=== PATIENT | female | born 1980 ===

== ENCOUNTER 2017-03-06 10:51 | Emergency (ER) | payer MEDICAID ==
[2017-03-06 10:52] VITALS: BMI 35.4
[2017-03-06 10:59] VITALS: RESP 16; O2SAT 100
--- NOTE | 2017-03-06 12:13 | C.PDOC ---
History Of Present Illness 36 yo female w/o significant PMHx come in for evaluation of facial congestion, mild swelling, frontal headache gradually developed for past 2 days. Pt admits, (+) cold sx week prior to onset of current sx. Otherwise, pt denies high fever, chills, worse headache, visual changes, focal deficits, neck pain, drooling, dysphagia, dyspnea, CP, SOB, wheezing, abd. pain, V/D, back pain, UTI sx. Ambulate to ED for evaluation, not in any apparent distress. Time Seen by Provider: 03/06/17 11:24 Chief Complaint (Nursing): Headache History Per: Patient Past Medical History Reviewed: Historical Data, Nursing Documentation, Vital Signs Vital Signs: Last Vital Signs Temp 97.8 F 03/06/17 10:55 Pulse 74 03/06/17 10:55 Resp 16 03/06/17 10:55 BP 150/86 03/06/17 10:55 Pulse Ox 100 03/06/17 12:19 - Medical History PMH: Asthma, Migraine Denies: Chronic Kidney Disease Surgical History: - [facility] Procedures MONITORING NOS (06/30/13) LOW CERVICAL (06/30/13) Family History: States: Unknown Family Hx - Social History Hx Tobacco Use: No Hx Alcohol Use: No Hx Substance Use: No - Immunization History Hx Tetanus Toxoid Vaccination: Yes Hx Influenza Vaccination: Yes Hx Pneumococcal Vaccination: Yes Review Of Systems Except As Marked, All Systems Reviewed And Found Negative. Constitutional: Negative for: Fever, Chills Eyes: Negative for: Vision Change ENT: Positive for: Nose Discharge, Nose Congestion. Negative for: Ear Discharge , Mouth Pain, Mouth Swelling, Throat Pain Respiratory: Negative for: Cough, Shortness of Breath, Wheezing Gastrointestinal: Negative for: Nausea, Vomiting, Abdominal Pain, Diarrhea Genitourinary: Negative for: Dysuria, Incontinence Musculoskeletal: Negative for: Neck Pain, Back Pain Skin: Negative for: Rash Neurological: Positive for: Headache. Negative for: Weakness, Numbness, Altered Mental Status, Dizziness Physical Exam - Physical Exam Appears: Well, Non-toxic, No Acute Distress Skin: Normal Color, Warm, Dry, No Rash Head: Normacephalic Eye(s): bilateral: PERRL Ear(s): Bilateral: Normal Nose: No Flaring, No Discharge, Other ((+)mild B/L maxilalry sinus edema and tenderness, no erythema.) Oral Mucosa: Moist, No Drooling Tongue: Normal Appearing, No Swelling Lips: Normal Appearing, No Swelling Throat: No Erythema, No Exudate, No Drooling Neck: Trachea Midline, Supple Cardiovascular: Rhythm Regular, No Murmur, No JVD Respiratory: No Decreased Breath Sounds, No Accessory Muscle Use, No Stridor, No Wheezing Gastrointestinal/Abdominal: Soft, No Tenderness Back: No CVA Tenderness Extremity: Normal ROM, No Pedal Edema, No Deformity, No Swelling Neurological/Psych: Oriented x3, Normal Speech ED Course And Treatment - Laboratory Results Urine POC: Negative O2 Sat by Pulse Oximetry: 100 Pulse Ox Interpretation: Normal Progress Note: On re-eval, pt is afebrile, hemodynamicaly stable. Non-toxic. Tolerate Po well in ED. PUlsEOx 100% RA. Neck: Supple, (-) JVD, (-) carotid bruits B/L. ENT: exam c/w maxilary sinusitis. uvula midline, no edema. Lungs: CTA B/L, BS equal B/L. CVS: (+)S1S2, reg. Abd: benign. Neurologicaly intact. Pt advised on course of ds. ref. to F/u with PMD, ENT In 2-3 days for re- eval. return if any new changes. Disposition Counseled Patient/Family Regarding: Studies Performed, Diagnosis, Need For Followup, Rx Given - Disposition Referrals: [facility] [Outside] Disposition: HOME/ ROUTINE Disposition Time: 12:15 Condition: STABLE Additional Instructions: ENCOURAGE FLUIDS TAKE MEDICATION PRESCRIBED FOLLOW UP WITH PMD IN 2-3 DAYS FOR RE-EVALUATION. RETURN TO ed IF ANY WORSENING OR NEW CHANGES. Prescriptions: Ciprofloxacin [Cipro] 1 tab PO BID #14 tab Loratadine [Claritin] 10 mg PO BID #10 tab Prednisone [Deltasone] 40 mg PO DAILY #6 tablet Instructions: Sinusitis (ED), Urinary Tract Infection in Women (ED) Forms: [employer] (Wolof) Print Language: IVORIAN - Clinical Impression Clinical Impression: Sinusitis, UTI (urinary tract infection)
[2017-03-06 12:22] LABS: SQUAMOUS EPITHIAL 7 /hpf (0-5); URINE AMORPHOUS SEDIMENT RARE /ul (<OCC); URINE BACTERIA MANY (<OCC); URINE BILIRUBIN NEGATIVE (NEGATIVE); URINE BLOOD NEGATIVE (NEGATIVE); URINE CLARITY Hazy (Clear); URINE COLOR Amber (YELLOW); URINE GLUCOSE (UA) NORMAL (Normal); URINE LEUKOCYTE ESTERASE TRACE Leu/uL (Negative); URINE NITRATE NEGATIVE (NEGATIVE); URINE PROTEIN NEGATIVE (NEGATIVE); URINE UROBILINOGEN NORMAL mg/dL (0.2-1.0)
[2017-03-06 12:44] VITALS: BP 124/72; PULSE 68; TEMP 98.2
== END 2017-03-06 12:57 | disposition home or self-care (01) ==
LOC: C.ER 10:51
DX: J32.9 Chronic sinusitis, unspecified (principal); N39.0 Urinary tract infection, site not specified

== ENCOUNTER 2018-03-14 11:25 | Emergency (ER) | payer MEDICAID ==
[2018-03-14 11:25] VITALS: BMI 35.4
[2018-03-14 11:32] VITALS: RESP 20; TEMP 98.1; O2SAT 100
[2018-03-14] MEDS ORDERED: Simethicone 80 mg Chewtab PO STA (12:20)
--- NOTE | 2018-03-14 13:00 | C.PDOC ---
History Of Present Illness 37 y/o female presents to the ER complaining of dizziness which occurred today. 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 Patient describes the dizziness as " spinning sensation." Patient notes that she sat down and some of the dizziness subsided.She is eating and drinking well. She notes that she had pain in the back of her head 2 days ago however she did not take any medications. She has pain in the front of her head in the ER. Denies having nausea, vomiting, ringing in ears, neck pain, neck stiffness, cough, fever,and chills. of note, patient's LMP was on 03/07/18. Time Seen by Provider: 03/14/18 11:32 Chief Complaint (Nursing): Dizziness/Lightheaded History Per: Patient History/Exam Limitations: no limitations Onset/Duration Of Symptoms: Hrs Current Symptoms Are (Timing): Still Present Severity: Moderate Past Medical History Reviewed: Historical Data, Nursing Documentation, Vital Signs Vital Signs: Last Vital Signs Temp 98.1 F 03/14/18 11:31 Pulse 70 03/14/18 11:31 Resp 20 03/14/18 11:31 BP 130/86 03/14/18 11:31 Pulse Ox 100 03/14/18 11:31 - Medical History PMH: Asthma, Migraine Denies: Chronic Kidney Disease Surgical History: - [facility] Procedures MONITORING NOS (06/30/13) LOW CERVICAL (06/30/13) Family History: States: No Known Family Hx - Social History Hx Tobacco Use: No Hx Alcohol Use: No Hx Substance Use: No - Immunization History Hx Tetanus Toxoid Vaccination: Yes Hx Influenza Vaccination: Yes Hx Pneumococcal Vaccination: Yes Review Of Systems Except As Marked, All Systems Reviewed And Found Negative. Constitutional: Negative for: Fever, Chills Respiratory: Negative for: Cough Gastrointestinal: Negative for: Nausea, Vomiting Neurological: Positive for: Headache Physical Exam - Physical Exam Appears: Non-toxic, No Acute Distress Skin: Normal Color, Warm, Dry Head: Atraumatic, Normacephalic Eye(s): bilateral: Normal Inspection, PERRL, EOMI, Other (no nystagmus) Nose: Normal Oral Mucosa: Moist Neck: Supple Chest: Symmetrical Cardiovascular: Rhythm Regular Respiratory: Normal Breath Sounds, No Rales, No Rhonchi, No Wheezing Gastrointestinal/Abdominal: Soft, No Tenderness, No Guarding, No Rebound Neurological/Psych: Oriented x3, Normal Speech, Normal Motor, Normal Sensation ED Course And Treatment O2 Sat by Pulse Oximetry: 100 (RA) Pulse Ox Interpretation: Normal Medical Decision Making Medical Decision Making: Plan: --Labs --UA --Tylenol Updates: 14:30 On re-evaluation, patient feels better. Patient has been discharged home. Disposition Counseled Patient/Family Regarding: Studies Performed, Diagnosis, Need For Followup - Disposition Disposition: HOME/ ROUTINE Disposition Time: 14:33 Condition: STABLE Additional Instructions: ZENAIDA BROCK, thank you for letting us take care of you today. Your provider was Ekaterina Boyle MD and you were treated for DIZZINESS. The emergency medical care you received today was directed at your acute symptoms. If you were prescribed any medication, please fill it and take as directed. It may take several days for your symptoms to resolve. Return to the Emergency Department if your symptoms worsen, do not improve, or if you have any other problems. Please contact your doctor in 1-2 days for a follow up appointment. Bring any paperwork you were given at discharge with you along with any medications you are taking to your follow up visit. Our treatment cannot replace ongoing medical care by a primary care provider outside of the emergency department. Thank you for allowing the [facility] team to be part of your care today. If you had an X-Ray or CT scan: A Radiologist will review the ED reading if any change in treatment is needed we will contact you. If you had a blood, urine, or wound culture: It will take several days for the results, if any change in treatment is needed we will contact you. If you had an STI test: It will take 48 hours for the results. Please call after 1 week if you have not heard back. Instructions: Vertigo (a Type of Dizziness) (DC) Forms: [employer] (Yakut), General Discharge Instructions - POA Present On Arrival: None - Clinical Impression Clinical Impression: Dizziness - Scribe Statement The provider has reviewed the documentation as recorded by the Rodger Dwyer Provider Attestation: All medical record entries made by the Jbibe were at my direction and personally dictated by me. I have reviewed the chart and agree that the record accurately reflects my personal performance of the history, physical exam, medical decision making, and the department course for this patient. I have also personally directed, reviewed, and agree with the discharge instructions and disposition.
[2018-03-14 13:46] LABS: SQUAMOUS EPITHIAL 4 /hpf (0-5); URINE BACTERIA RARE (<OCC); URINE BILIRUBIN NEGATIVE (NEGATIVE); URINE BLOOD NEGATIVE (NEGATIVE); URINE CLARITY Hazy (Clear); URINE COLOR Yellow (YELLOW); URINE GLUCOSE (UA) NORMAL (Normal); URINE LEUKOCYTE ESTERASE NEG Leu/uL (Negative); URINE PROTEIN NEGATIVE (NEGATIVE); URINE UROBILINOGEN NORMAL mg/dL (0.2-1.0)
[2018-03-14 15:07] VITALS: BP 150/91; PULSE 104
== END 2018-03-14 15:06 | disposition home or self-care (01) ==
LOC: C.ER 11:25
DX: R42 Dizziness and giddiness (principal)